=== PATIENT | male | born 1965 | race Two or more races ===

== ENCOUNTER 2022-12-25 19:41 | Emergency (ER) | payer OTHER ==
[~2022-12-25] VITALS: Ht 170.2 cm; Wt 63.6 kg
[2022-12-25 21:16] VITALS: BP 121/77
[2022-12-25] MEDS ORDERED: BUPIVACAINE HCL/PF 0.25% 10 ML VIAL PERC ONE (22:15)
[2022-12-25] MEDS ORDERED: LIDOCAINE 1% 10 ML VIAL PERC ONE (22:15)
[2022-12-25] MEDS ORDERED: CEPH-558 PO (23:09)
[2022-12-25] MEDS ORDERED: IBUP-1492 PO (23:11)
[2022-12-25] MEDS ORDERED: HYDR-4723 PO (23:12)
[2022-12-25] MEDS ORDERED: CEPHALEXIN MONOHYDRATE 500 MG CAPSULE PO ONE (23:15)
[2022-12-25] MEDS ORDERED: NEOMYCIN/BACITRACIN/POLYMYXIN B OINTMENT PACKET TP ONE (23:30)
== END 2022-12-25 23:55 | disposition home or self-care (01) ==
LOC: EMS 19:42
DX: S62.635A Displaced fracture of distal phalanx of left ring finger, initial encounter for closed fracture (principal); S61.215A Laceration without foreign body of left ring finger without damage to nail, initial encounter; W45.8XXA Other foreign body or object entering through skin, initial encounter; Y93.89 Activity, other specified; Y92.89 Other specified places as the place of occurrence of the external cause; Y99.8 Other external cause status
CPT/HCPCS: 99283; 73130; 12002; J3490 ×2

== ENCOUNTER 2022-12-27 14:16 | Emergency (ER) | payer OTHER ==
[~2022-12-27] VITALS: Ht 162.6 cm; Wt 63.6 kg
[~2022-12-27 14:16] MED LIST: CEPH-558 PO; HYDR-4723 PO; IBUP-1492 PO
[2022-12-27 14:39] VITALS: BP 120/72
[2022-12-27] MEDS ORDERED: IBUPROFEN 600 MG TABLET PO ONE (15:00)
[2022-12-27] MEDS ORDERED: CEPHALEXIN MONOHYDRATE 500 MG CAPSULE PO ONE (15:00)
== END 2022-12-27 15:20 | disposition home or self-care (01) ==
LOC: EMS 14:29
DX: S61.215D Laceration without foreign body of left ring finger without damage to nail, subsequent encounter (principal); S62.635D Displaced fracture of distal phalanx of left ring finger, subsequent encounter for fracture with routine healing; Z98.890 Other specified postprocedural states; X58.XXXD Exposure to other specified factors, subsequent encounter
CPT/HCPCS: 99283

== ENCOUNTER 2023-01-08 10:14 | Emergency (ER) | payer OTHER ==
[~2023-01-08] VITALS: Ht 170.2 cm; Wt 65.9 kg
[2023-01-08 12:35] VITALS: BP 133/77
== END 2023-01-08 13:36 | disposition home or self-care (01) ==
LOC: EMS 10:38
DX: S62.605A Fracture of unspecified phalanx of left ring finger, initial encounter for closed fracture (principal); S61.215A Laceration without foreign body of left ring finger without damage to nail, initial encounter; X58.XXXA Exposure to other specified factors, initial encounter; Y93.89 Activity, other specified; Y92.89 Other specified places as the place of occurrence of the external cause; Y99.8 Other external cause status
CPT/HCPCS: 99283

== ENCOUNTER 2023-06-24 09:37 | Emergency (ER) | payer OTHER ==
[~2023-06-24] VITALS: Ht 170.2 cm; Wt 63.6 kg
[2023-06-24 10:02] VITALS: BP 114/73; PULSE 94; RESP 16; TEMP 98.1
[2023-06-24] MEDS ORDERED: ACET-2080 PO (12:34)
[2023-06-24] MEDS ORDERED: CEPH-558 PO (12:34)
[2023-06-24] MEDS ORDERED: DOXY-354 PO (12:34)
[2023-06-24] MEDS ORDERED: IBUP-1554 PO (12:34)
== END 2023-06-24 12:45 | disposition home or self-care (01) ==
LOC: EMS 09:45
DX: L03.116 Cellulitis of left lower limb (principal); Z98.890 Other specified postprocedural states
CPT/HCPCS: 99283